=== PATIENT | male | born 1995 | race Caucasian/White ===

== ENCOUNTER 2017-11-30 22:14 | Emergency (ER) | payer OTHER ==
--- NOTE | 2017-11-30 22:29 | ER Report ---
History and Physical Time Seen By MD: 22:29 Hx. of Stated Complaint: Pt twisting after standing up from couch. Pain behind knee. HPI/ROS CHIEF COMPLAINT: right knee pain HISTORY OF PRESENT ILLNESS: This is a 22 year old male. He is having pain in the right knee. Had gotten up from the couch and felt a popping in his right knee. Now with severe pain in the back of the knee if he tries to extend it. No problems with the knee. No other injuries. Has normal sensation in the foot and leg. Allergies: Coded Allergies: No Known Drug Allergies (Unverified , 11/30/17) Home Meds No Active Prescriptions or Reported Meds Reviewed Nurses Notes: Yes Constitutional Vital Sign - Last 24 Hours 11/30/17 11/30/17 11/30/17 11/30/17 22:21 22:23 22:30 22:59 Pulse 94 87 Resp 16 B/P (MAP) 142/77 (98) 142/77 103/82 (89) Pulse Ox 95 93 O2 Delivery Room Air 11/30/17 11/30/17 11/30/17 11/30/17 23:00 23:05 23:30 23:35 Pulse 84 74 B/P (MAP) 122/82 (95) 122/86 (98) Pulse Ox 94 92 11/30/17 12/01/17 12/01/17 23:50 00:00 00:05 Pulse 84 80 B/P (MAP) 128/76 (93) Pulse Ox 91 94 Physical Exam General appearance: Alert no distress. Musculoskeletal: Right knee shows no significant swelling. There is no effusion. There is no obvious deformity of the knee. Patella had no pain. Medial jointline is nontender to palpation. Lateral jointline is nontender to palpation. The patient cannot extend the leg because of pain. Significant guarding. Seems to have pain with palpation over the lateral hamstring tendons. Neurologic: The patient has normal sensation distal to the injury. Cardiovascular: Normal pulses and capillary refill in the foot Skin: No rashes. No skin breakdown. DIFFERENTIAL DIAGNOSIS: After history and physical exam differential diagnosis was considered for knee injury including strain, muscle/tendon tear, fracture. Medical Decision Making EKG/Imaging Imaging KNEE 4 VIEW RIGHT HISTORY: Posterior lateral knee pain. Patient unable to straighten leg, but when assisting patient to straighten knee, a loud popping noise came from the knee, he had full movement again, and pain declined. COMPARISON: None. TECHNIQUE: AP, lateral, oblique, and sunrise views of the right knee. FINDINGS: There is no fracture or dislocation. No joint effusion. IMPRESSION: 1. No acute osseous abnormality of the right knee. Report Dictated By: Alyce Lucsa at 11/30/2017 11:45 PM ED Course/Re-evaluation ED Course While getting the x-ray and extending the leg, he felt a pop and the pain was much better. X-ray negative. Conservative management with follow-up ortho recommended. Decision to Disposition Date: Dec 01, 2017 Decision to Disposition Time: 00:09 Depart Departure Latest Vital Signs Vital Signs Date Time Temp Pulse Resp B/P (MAP) Pulse Ox O2 Delivery O2 Flow Rate FiO2 12/01/17 00:05 80 94 12/01/17 00:00 128/76 (93) 11/30/17 22:23 16 Room Air Impression: Primary Impression: Hamstring injury Condition: Improved Disposition: HOME OR SELF-CARE New Scripts No Active Prescriptions or Reported Meds Patient Instructions: Muscle Strain (ED) Additional Instructions: Ibuprofen 200mg over the counter tablets, take 4 tablets three times a day with food. Apply ice 20 minutes every 1-2 hours while awake. An AMANDA wrap can be used for compression to help reduce swelling. Rest the injured area, keep it elevated while at rest. Begin gentle range of motion exercises. If not improving, follow-up with orthopedic surgery; [facility]. Problem Qualifiers Primary Impression: Hamstring injury Encounter type: initial encounter Laterality: right Qualified Codes: S76.301A - Unspecified injury of muscle, fascia and tendon of the posterior muscle group at thigh level, right thigh, initial encounter ERNIE SALGUERO MD Nov 30, 2017 22:29
[2017-11-30] MEDS ORDERED: APAP/HYDROCODONE 325/5 TAB PO ONE (22:40)
[2017-11-30] MEDS ORDERED: DIAZEPAM 5 MG TAB PO ONE (22:40)
--- NOTE | 2017-11-30 23:50 | RADIOLOGY IMAGING REPORT ---
FACILITY: [facility] - [place] PATIENT NAME: Jed Johnson : 1995 MR: [id number] V: [id number] EXAM DATE: ORDERING PHYSICIAN: ERNIE SALGUERO TECHNOLOGIST: Location: [facility] - [place] Patient: Jed Johnson : 1995 Visit/Account:[id number] Date of Sevice: 11/30/2017 KNEE 4 VIEW RIGHT HISTORY: Posterior lateral knee pain. Patient unable to straighten leg, but when assisting patient to straighten knee, a loud popping noise came from the knee, he had full movement again, and pain decli [place]. COMPARISON: None. TECHNIQUE: AP, lateral, oblique, and sunrise views of the right knee. FINDINGS: There is no fracture or dislocation. No joint effusion. IMPRESSION: 1. No acute osseous abnormality of the right knee. Report Dictated By: Alyce Lucas at 11/30/2017 11:45 PM Report E-Signed By: Alyce Lucas at 11/30/2017 11:47 PM WSN:[id number]
[2017-12-01] VITALS: BP 128/76
== END 2017-12-01 00:24 | disposition home or self-care (01) ==
LOC: ER 22:51
DX: S76.301A Unspecified injury of muscle, fascia and tendon of the posterior muscle group at thigh level, right thigh, initial encounter (principal)
CPT/HCPCS: 73564; 99283